=== PATIENT | male | born 1950 | race Caucasian/White ===

== ENCOUNTER 2019-02-20 18:02 | Observation (INO) ==
[2019-02-20 19:30] LABS: Basophils % 0.4 % (0.0-0.8); Eosinophils # 0.2 10*3/uL (0.0-0.87); Eosinophils % 2.7 % (0.00-10.9); Hematocrit 44.5 VOL% (42.0-52.0); Hemoglobin 14.2 GM/DL (14.0-18.0); Immature Granulocytes % 0.1 %; Immature Granulocytes Absolute 0.01 #; Lymphocytes # 1.2 10*3/uL (1.4-4.0); Lymphocytes % 17.1 % (21.2-54.2); Mean Corpuscular HGB Conc 31.9 GM/DL (32-36); Mean Corpuscular Volume 86.6 FL (87-102); Mean Platelet Volume 9.4 FL (9.6-12.0); Monocytes % 6.9 % (1.7-12.7); Neutrophils % 72.8 % (38.7-73.9); Platelet Count 188 T/CUMM (130-400); Red Blood Count 5.14 MC/CUMM (3.8-5.5); Red Cell Distribution Width 13.7 % (9.3-17.3)
[2019-02-20 19:56] LABS: Albumin 4.4 G/DL (3.4-5.0); Bilirubin,Total 0.4 MG/DL (0.2-1.0); Calcium 9.1 MG/DL (8.5-10.1); Osmolality,Calculated 283.5 MOS/KG (273-304); Total Protein 7.2 G/DL (6.4-8.3)
[2019-02-20] MEDS ORDERED: ENOXAPARIN 30 MG/0.3 ML SYRINGE SUBCUT STA (20:52)
[2019-02-20] MEDS ORDERED: ASPIRIN 325 MG TABLET PO STA (20:52)
[2019-02-20] MEDS ORDERED: ENOXAPARIN 80 MG/0.8 ML SYRINGE SUBCUT ONE (21:11)
[2019-02-20] MEDS ORDERED: ONDANSETRON 4 MG TABLET PO PRN (22:31)
[2019-02-20] MEDS ORDERED: GLUCAGON 1 MG VIAL IM PRN (22:35)
[2019-02-20] MEDS ORDERED: DEXTROSE 50% 25 GM/50 ML SYRINGE IV PRN (22:35)
[2019-02-21] MEDS ORDERED: INSULIN LISPRO 100 UNIT/ML SUBCUT SCH ×2 (07:30→16:30)
[2019-02-21] MEDS ORDERED: DIAZEPAM 5 MG TABLET PO ONE (07:43)
[2019-02-21] MEDS ORDERED: MAGNESIUM SULF RIDER 2 GM in PREMIX 1 EACH IV PRN (07:43)
[2019-02-21] MEDS ORDERED: diphenhydrAMINE CAP 25 MG CAPSULE PO ONE (07:43)
[2019-02-21] MEDS ORDERED: POTASSIUM CHLORIDE RIDER 10 MEQ in PREMIX 1 EACH IV PRN (07:43)
[2019-02-21] MEDS: SODIUM CHLORIDE 0.9% 1,000 ML IV SCH ×2 (08:32→17:28)
[2019-02-21] MEDS ORDERED: INSULIN GLARGINE 100 UNIT/ML SUBCUT SCH ×2 (09:00→21:00)
[2019-02-21] MEDS: amLODIPine 10 MG TABLET PO SCH (09:04)
[2019-02-21] MEDS: ASPIRIN EC 81 MG TABLET PO SCH (09:04)
[2019-02-21] MEDS: CLOPIDOGREL 75 MG TABLET PO SCH (09:04)
[2019-02-21] MEDS: LOSARTAN/HCTZ 50-12.5 MG TABLET PO SCH (09:04)
[2019-02-21] MEDS: PANTOPRAZOLE 40 MG TABLET PO SCH (09:04)
[2019-02-21] MEDS: METOPROLOL SUCCINATE XL 50 MG TABLET PO SCH (09:04)
[2019-02-21] MEDS: ATORVASTATIN 40 MG TABLET PO SCH (09:05)
[2019-02-21] MEDS ORDERED: HEPARIN/NACL 0.9% 2 UNITS/ML 1,000 ML IV ONE (09:19)
[2019-02-21] MEDS ORDERED: LIDOCAINE 1%/EPI INJ 20 ML VIAL ONE (09:19)
[2019-02-21] MEDS ORDERED: fentaNYL 100 MCG/2 ML VIAL ONE (09:50)
[2019-02-21] MEDS ORDERED: MIDAZOLAM 2 MG/2 ML VIAL ONE ×2 (09:50→10:49)
[2019-02-21] MEDS ORDERED: HEPARIN/NACL 0.9% 2 UNITS/ML 500 ML IV ONE (10:50)
[2019-02-21] MEDS ORDERED: ENOXAPARIN 60 MG/0.6 ML SYRINGE ONE (10:51)
[2019-02-21] MEDS ORDERED: diphenhydrAMINE 50 MG/1 ML VIAL ONE (11:02)
[2019-02-21] MEDS ORDERED: HYDROmorphone 2 MG/1 ML VIAL ONE (11:11)
[2019-02-21] MEDS ORDERED: ceFAZolin 1,000 MG VIAL ONE (11:16)
[2019-02-21] MEDS ORDERED: HYDROmorphone 2 MG/1 ML VIAL IV PRN (12:24)
[2019-02-21] MEDS: DAPAGLIFLOZIN 10 MG PO SCH (16:26)
[2019-02-22] MEDS ORDERED: INSULIN LISPRO 100 UNIT/ML SUBCUT SCH ×2 (07:30→11:30)
[2019-02-22] MEDS: PANTOPRAZOLE 40 MG TABLET PO SCH (08:48)
[2019-02-22] MEDS: ASPIRIN EC 81 MG TABLET PO SCH (08:48)
[2019-02-22] MEDS: amLODIPine 10 MG TABLET PO SCH (08:49)
[2019-02-22] MEDS: ATORVASTATIN 40 MG TABLET PO SCH (08:49)
[2019-02-22] MEDS: METOPROLOL SUCCINATE XL 50 MG TABLET PO SCH (08:49)
[2019-02-22] MEDS: DAPAGLIFLOZIN 10 MG PO SCH (08:49)
[2019-02-22] MEDS: CLOPIDOGREL 75 MG TABLET PO SCH (08:49)
[2019-02-22] MEDS: LOSARTAN/HCTZ 50-12.5 MG TABLET PO SCH (08:49)
[2019-02-22] MEDS ORDERED: ISOSORBIDE MONONITRATE 60 MG TABLET PO SCH (09:00)
[2019-02-22 13:21] VITALS: BP 122/66
== END 2019-02-22 13:51 | disposition home or self-care (01) ==
LOC: N.EDINP 18:02 → N.ED 18:02 → N.TELES 22:36
PROVIDERS: ADMIT Internal Medicine; ATTEND Internal Medicine

== ENCOUNTER 2019-02-28 15:25 | Inpatient (IN) ==
[2019-02-28 16:32] LABS: Basophils % 0.2 % (0.0-0.8); Eosinophils # 0.2 10*3/uL (0.0-0.87); Eosinophils % 3.3 % (0.00-10.9); Hematocrit 41.8 VOL% (42.0-52.0); Hemoglobin 13.2 GM/DL (14.0-18.0); Immature Granulocytes % 0.2 %; Immature Granulocytes Absolute 0.01 #; Lymphocytes # 1.3 10*3/uL (1.4-4.0); Mean Corpuscular HGB Conc 31.6 GM/DL (32-36); Mean Corpuscular Volume 87.3 FL (87-102); Monocytes % 9.1 % (1.7-12.7); Neutrophils % 66.2 % (38.7-73.9); Red Blood Count 4.79 MC/CUMM (3.8-5.5); Red Cell Distribution Width 13.9 % (9.3-17.3); White Blood Count 6.1 T/CUMM (4-12)
[2019-02-28 16:35] LABS: Calcium 8.9 MG/DL (8.5-10.1); Osmolality,Calculated 278.7 MOS/KG (273-304)
[2019-02-28 16:36] LABS: Platelet Count 144 T/CUMM (130-400)
[2019-02-28] MEDS ORDERED: ONDANSETRON 4 MG/2 ML VIAL IV PRN (17:43)
[2019-02-28] MEDS ORDERED: PROMETHAZINE 25 MG/1 ML VIAL IM PRN (17:43)
[2019-02-28] MEDS ORDERED: ACETAMINOPHEN 325 MG TABLET PO PRN (17:43)
[2019-02-28] MEDS ORDERED: traZODone 50 MG TABLET PO PRN (17:43)
[2019-02-28] MEDS ORDERED: MAGNESIUM SULF RIDER 2 GM in PREMIX 1 EACH IV PRN (17:43)
[2019-02-28] MEDS ORDERED: DEXTROSE 50% 25 GM/50 ML VIAL IV PRN (17:43)
[2019-02-28] MEDS ORDERED: POTASSIUM CHLORIDE 20 MEQ TABLET PO PRN (17:43)
[2019-02-28] MEDS ORDERED: ZALEPLON 5 MG CAPSULE PO PRN (17:43)
[2019-02-28] MEDS ORDERED: GLUCAGON 1 MG VIAL IM PRN (17:43)
[2019-02-28 18:07] LABS: Risk Ratio 2.46
[2019-02-28] MEDS ORDERED: NITROGLYCERIN SL 0.4 MG TABLET SL PRN (19:09)
[2019-02-28] MEDS: ENOXAPARIN 100 MG/ML SYRINGE SUBCUT SCH (19:16)
[2019-02-28] MEDS: SODIUM CHLORIDE 0.45% 1,000 ML IV SCH (19:16)
[2019-02-28] MEDS: INSULIN GLARGINE 100 UNIT/ML SUBCUT SCH ×2 (20:22→20:31)
[2019-02-28] MEDS: INSULIN REGULAR 100 UNIT/ML SUBCUT SCH (20:22)
[2019-02-28] MEDS: DOCUSATE SODIUM 100 MG CAPSULE PO SCH (20:25)
[2019-02-28] MEDS ORDERED: ATORVASTATIN 40 MG TABLET PO SCH (21:00)
[2019-02-28] MEDS ORDERED: INSULIN LISPRO 100 UNIT/ML SUBCUT SCH (21:00)
[2019-02-28] MEDS: NITROGLYCERIN SL 0.4 MG TABLET SL SCH ×2 (21:26→21:27)
[2019-03-01 00:41] LABS: Basophils % 0.3 % (0.0-0.8); Eosinophils # 0.2 10*3/uL (0.0-0.87); Eosinophils % 3.6 % (0.00-10.9); Hematocrit 41.5 VOL% (42.0-52.0); Hemoglobin 13.4 GM/DL (14.0-18.0); Immature Granulocytes % 0.3 %; Immature Granulocytes Absolute 0.02 #; Lymphocytes # 1.7 10*3/uL (1.4-4.0); Lymphocytes % 25.9 % (21.2-54.2); Mean Corpuscular HGB Conc 32.3 GM/DL (32-36); Mean Corpuscular Volume 86.1 FL (87-102); Mean Platelet Volume 9.3 FL (9.6-12.0); Monocytes % 8.2 % (1.7-12.7); Neutrophils % 61.7 % (38.7-73.9); Platelet Count 209 T/CUMM (130-400); Red Blood Count 4.82 MC/CUMM (3.8-5.5); Red Cell Distribution Width 13.8 % (9.3-17.3); White Blood Count 6.5 T/CUMM (4-12)
[2019-03-01 00:59] LABS: Alanine Aminotransferase 25 U/L (16-61); Alkaline Phosphatase 76 U/L (45-117); Aspartate Amino Transferase 22 U/L (0-37); Bilirubin,Total < 0.39 MG/DL (0.2-1.0); Blood Urea Nitrogen 20 MG/DL (7-18); Calcium 8.7 MG/DL (8.5-10.1); Glucose 90 MG/DL (74-106); Osmolality,Calculated 277.7 MOS/KG (273-304); Total Protein 6.9 G/DL (6.4-8.3)
[2019-03-01] MEDS: SODIUM CHLORIDE 0.45% 1,000 ML IV SCH (04:35)
[2019-03-01] MEDS: ENOXAPARIN 100 MG/ML SYRINGE SUBCUT SCH (06:06)
[2019-03-01] MEDS ORDERED: INSULIN LISPRO 100 UNIT/ML SUBCUT SCH (08:00)
[2019-03-01] MEDS ORDERED: amLODIPine 10 MG TABLET PO SCH (09:00)
[2019-03-01] MEDS ORDERED: METOPROLOL SUCCINATE XL 50 MG TABLET PO SCH (09:00)
[2019-03-01] MEDS ORDERED: ISOSORBIDE MONONITRATE 60 MG TABLET PO SCH (09:00)
[2019-03-01] MEDS ORDERED: ASPIRIN EC 81 MG TABLET PO SCH (09:00)
[2019-03-01] MEDS ORDERED: CLOPIDOGREL 75 MG TABLET PO SCH (09:00)
[2019-03-01] MEDS ORDERED: NON-FORMULARY MEDICATION (Dapagliflozin [Farxiga] 10 MG) PO SCH (09:00)
[2019-03-01] MEDS ORDERED: LOSARTAN/HCTZ 50-12.5 MG TABLET PO SCH (09:00)
[2019-03-01] MEDS ORDERED: PANTOPRAZOLE 40 MG TABLET PO SCH (09:00)
[2019-03-01] MEDS: DOCUSATE SODIUM 100 MG CAPSULE PO SCH (09:49)
[2019-03-01] MEDS: INSULIN REGULAR 100 UNIT/ML SUBCUT SCH ×2 (11:13→14:30)
[2019-03-01 11:49] VITALS: BP 156/74
[2019-03-01] MEDS ORDERED: RANOLAZINE 500 MG TABLET PO SCH (12:34)
== END 2019-03-01 14:05 | disposition home or self-care (01) | DRG 282 ==
LOC: N.ED 15:25 → SUATTDRO 17:43 → N.EDINP 17:43 → N.TELEN 18:20
PROVIDERS: ADMIT Phlebology; ATTEND Internal Medicine

== ENCOUNTER 2019-05-16 21:57 | Inpatient (IN) ==
[2019-05-16] MEDS ORDERED: ASPIRIN 325 MG TABLET PO STA (22:18)
[2019-05-16] MEDS ORDERED: HEPARIN 5,000 UNIT/1 ML VIAL IV ONE (22:18)
[2019-05-16] MEDS ORDERED: TICAGRELOR 90 MG TABLET PO STA (22:22)
[2019-05-16 22:30] LABS: Basophils % 0.3 % (0.0-0.8); Eosinophils # 0.3 10*3/uL (0.0-0.87); Eosinophils % 3.8 % (0.00-10.9); Hematocrit 43.6 VOL% (42.0-52.0); Hemoglobin 13.7 GM/DL (14.0-18.0); Immature Granulocytes % 0.3 %; Immature Granulocytes Absolute 0.02 #; Lymphocytes # 1.8 10*3/uL (1.4-4.0); Lymphocytes % 25.8 % (21.2-54.2); Mean Corpuscular HGB Conc 31.4 GM/DL (32-36); Mean Corpuscular Volume 85.8 FL (87-102); Mean Platelet Volume 9.8 FL (9.6-12.0); Neutrophils % 59.8 % (38.7-73.9); Platelet Count 219 T/CUMM (130-400); Red Blood Count 5.08 MC/CUMM (3.8-5.5); White Blood Count 6.8 T/CUMM (4-12)
[2019-05-16] MEDS ORDERED: NITROGLYCERIN DRIP 50 MG/250 ML BOTTLE IV SCH (22:30)
[2019-05-16] MEDS ORDERED: LIDOCAINE 1% 20 ML VIAL ONE (22:45)
[2019-05-16] MEDS ORDERED: fentaNYL 100 MCG/2 ML VIAL ONE (22:45)
[2019-05-16] MEDS ORDERED: MIDAZOLAM 2 MG/2 ML VIAL ONE ×2 (22:45→23:25)
[2019-05-16 22:46] LABS: PT Patient Result 10.7 SECS; Partial Thromboplastin Time 26.6 SECS (0-40)
[2019-05-16 22:51] LABS: Alanine Aminotransferase 23 U/L (16-61); Albumin 4.2 G/DL (3.4-5.0); Alkaline Phosphatase 122 U/L (45-117); Aspartate Amino Transferase 22 U/L (0-37); Bilirubin,Total < 0.39 MG/DL (0.2-1.0); Blood Urea Nitrogen 24 MG/DL (7-18); Calcium 9.4 MG/DL (8.5-10.1); Glucose 210 MG/DL (74-106); Osmolality,Calculated 288.4 MOS/KG (273-304); Total Protein 7.7 G/DL (6.4-8.3)
[2019-05-16] MEDS ORDERED: HYDROmorphone 2 MG/1 ML VIAL ONE (23:18)
[2019-05-16] MEDS ORDERED: NITROGLYCERIN DRIP 50 MG/250 ML BOTTLE IV ONE (23:22)
[2019-05-16] MEDS ORDERED: VERAPAMIL 5 MG/2 ML VIAL ONE (23:22)
[2019-05-16] MEDS ORDERED: PROMETHAZINE 25 MG/1 ML VIAL ONE (23:53)
[2019-05-16] MEDS ORDERED: TICAGRELOR 90 MG TABLET ONE (23:56)
[2019-05-17] MEDS ORDERED: ZALEPLON 5 MG CAPSULE PO PRN (00:28)
[2019-05-17] MEDS ORDERED: ONDANSETRON 4 MG/2 ML VIAL IV PRN (00:28)
[2019-05-17] MEDS ORDERED: HYDROmorphone 2 MG/1 ML VIAL IV PRN (00:28)
[2019-05-17] MEDS ORDERED: DEXTROSE 50% 25 GM/50 ML VIAL IV PRN (00:28)
[2019-05-17] MEDS ORDERED: GLUCAGON 1 MG VIAL IM PRN (00:28)
[2019-05-17] MEDS ORDERED: ALUMINUM/MAGNES/SIMETH MAX STR 30 ML UDCUP PO PRN (00:28)
[2019-05-17] MEDS ORDERED: ACETAMINOPHEN 325 MG TABLET PO PRN (00:28)
[2019-05-17] MEDS ORDERED: SODIUM CHLORIDE 0.9% 1,000 ML IV SCH (00:30)
[2019-05-17] MEDS ORDERED: FUROSEMIDE 40 MG/4 ML VIAL IV ONE (01:06)
[2019-05-17] MEDS ORDERED: NITROGLYCERIN SL 0.4 MG TABLET SL PRN (01:15)
[2019-05-17 02:21] LABS: Basophils # 0.1 10*3/uL (0.0-0.2); Basophils % 0.3 % (0.0-0.8); Eosinophils # 0.1 10*3/uL (0.0-0.87); Eosinophils % 0.4 % (0.00-10.9); Hematocrit 45.5 VOL% (42.0-52.0); Hemoglobin 14.7 GM/DL (14.0-18.0); Immature Granulocytes % 0.3 %; Immature Granulocytes Absolute 0.04 #; Lymphocytes # 1.3 10*3/uL (1.4-4.0); Lymphocytes % 8.4 % (21.2-54.2); Mean Corpuscular HGB Conc 32.3 GM/DL (32-36); Mean Corpuscular Volume 86.2 FL (87-102); Mean Platelet Volume 9.8 FL (9.6-12.0); Monocytes % 6.5 % (1.7-12.7); Neutrophils % 84.1 % (38.7-73.9); Platelet Count 256 T/CUMM (130-400); Red Blood Count 5.28 MC/CUMM (3.8-5.5); White Blood Count 15.2 T/CUMM (4-12)
[2019-05-17] MEDS: NITROGLYCERIN SL 0.4 MG TABLET SL SCH ×3 (02:26→02:28)
[2019-05-17 02:48] LABS: CKMB % 2.6 %; Troponin I 0.462 NG/ML (0.00-0.045)
[2019-05-17 02:57] LABS: Calcium 8.5 MG/DL (8.5-10.1); Osmolality,Calculated 282.7 MOS/KG (273-304); Risk Ratio 2.56; VLDL CHOLESTEROL 17.2 MG/DL
[2019-05-17] MEDS: INSULIN REGULAR 100 UNIT/ML SUBCUT SCH ×4 (08:42→21:27)
[2019-05-17] MEDS: INSULIN LISPRO 100 UNIT/ML SUBCUT SCH ×3 (08:42→17:13)
[2019-05-17] MEDS: ISOSORBIDE MONONITRATE 20 MG TABLET PO SCH ×2 (08:43→21:29)
[2019-05-17] MEDS: amLODIPine 10 MG TABLET PO SCH (08:43)
[2019-05-17] MEDS: PANTOPRAZOLE 40 MG TABLET PO SCH (08:43)
[2019-05-17] MEDS: TICAGRELOR 90 MG TABLET PO SCH ×2 (08:43→21:29)
[2019-05-17] MEDS: ASPIRIN EC 81 MG TABLET PO SCH (08:43)
[2019-05-17] MEDS: METOPROLOL SUCCINATE XL 50 MG TABLET PO SCH (08:43)
[2019-05-17] MEDS: LOSARTAN/HCTZ 50-12.5 MG TABLET PO SCH (08:45)
[2019-05-17] MEDS ORDERED: ENOXAPARIN 40 MG/0.4 ML SYRINGE SUBCUT SCH (09:00)
[2019-05-17] MEDS ORDERED: NON-FORMULARY MEDICATION (Omeprazole 20 MG) PO SCH (09:00)
[2019-05-17 09:34] LABS: CKMB % 8.1 %
[2019-05-17 09:37] LABS: Troponin I 5.66 NG/ML (0.00-0.045)
[2019-05-17 17:12] LABS: CKMB % 6.6 %
[2019-05-17 17:14] LABS: Troponin I 11.2 NG/ML (0.00-0.045)
[2019-05-17] MEDS: ATORVASTATIN 40 MG TABLET PO SCH (21:29)
[2019-05-17] MEDS: INSULIN GLARGINE 100 UNIT/ML SUBCUT SCH ×2 (21:30→21:34)
[2019-05-17] MEDS: prednisoLONE ACETATE 1% OPH SUSP 5 ML BOTTLE BOTH EYES SCH (21:33)
[2019-05-18 00:53] LABS: CKMB % 4.5 %
[2019-05-18 01:01] LABS: Troponin I 10.1 NG/ML (0.00-0.045)
[2019-05-18 06:24] LABS: CKMB % 3.5 %
[2019-05-18 06:25] LABS: Troponin I 7.18 NG/ML (0.00-0.045)
[2019-05-18] MEDS: INSULIN REGULAR 100 UNIT/ML SUBCUT SCH ×4 (08:14→20:18)
[2019-05-18] MEDS: INSULIN LISPRO 100 UNIT/ML SUBCUT SCH ×3 (09:23→17:02)
[2019-05-18] MEDS: ASPIRIN EC 81 MG TABLET PO SCH (09:24)
[2019-05-18] MEDS: PANTOPRAZOLE 40 MG TABLET PO SCH (09:24)
[2019-05-18] MEDS: amLODIPine 10 MG TABLET PO SCH (09:25)
[2019-05-18] MEDS: LOSARTAN/HCTZ 50-12.5 MG TABLET PO SCH (09:25)
[2019-05-18] MEDS: TICAGRELOR 90 MG TABLET PO SCH ×2 (09:25→21:13)
[2019-05-18] MEDS: ISOSORBIDE MONONITRATE 20 MG TABLET PO SCH ×2 (09:26→21:13)
[2019-05-18] MEDS: METOPROLOL SUCCINATE XL 50 MG TABLET PO SCH (09:26)
[2019-05-18] MEDS: Dapagliflozin [Farxiga] 10 MG PO SCH (15:41)
[2019-05-18] MEDS: prednisoLONE ACETATE 1% OPH SUSP 5 ML BOTTLE BOTH EYES SCH (21:12)
[2019-05-18] MEDS: INSULIN GLARGINE 100 UNIT/ML SUBCUT SCH (21:13)
[2019-05-18] MEDS: ATORVASTATIN 40 MG TABLET PO SCH (21:13)
[2019-05-19 06:57] LABS: Calcium 8.7 MG/DL (8.5-10.1); Osmolality,Calculated 279.7 MOS/KG (273-304)
[2019-05-19] MEDS: ASPIRIN EC 81 MG TABLET PO SCH (07:59)
[2019-05-19] MEDS: PANTOPRAZOLE 40 MG TABLET PO SCH (07:59)
[2019-05-19] MEDS: ISOSORBIDE MONONITRATE 20 MG TABLET PO SCH (07:59)
[2019-05-19] MEDS: LOSARTAN/HCTZ 50-12.5 MG TABLET PO SCH (07:59)
[2019-05-19] MEDS: TICAGRELOR 90 MG TABLET PO SCH (08:00)
[2019-05-19] MEDS: METOPROLOL SUCCINATE XL 50 MG TABLET PO SCH (08:00)
[2019-05-19] MEDS: amLODIPine 10 MG TABLET PO SCH (08:00)
[2019-05-19] MEDS: INSULIN LISPRO 100 UNIT/ML SUBCUT SCH (08:00)
[2019-05-19] MEDS: INSULIN REGULAR 100 UNIT/ML SUBCUT SCH (08:01)
[2019-05-19] MEDS: Dapagliflozin [Farxiga] 10 MG PO SCH (08:01)
[2019-05-19 08:10] VITALS: BP 136/68
== END 2019-05-19 08:40 | disposition home or self-care (01) | DRG 247 ==
LOC: N.ED 21:57 → N.EDINP 22:46 → N.ICU 05-17 01:20 → N.TELEN 05-17 17:37
PROVIDERS: ADMIT Internal Medicine Cardiovascular Disease; ATTEND Internal Medicine Cardiovascular Disease

== ENCOUNTER 2019-08-25 20:37 | Inpatient (IN) ==
[2019-08-25] MEDS ORDERED: NITROGLYCERIN 2% OINT 1 INCH/GM PACK TOP STA (22:40)
[2019-08-25] MEDS ORDERED: ONDANSETRON 4 MG/2 ML VIAL IV STA (22:40)
[2019-08-25] MEDS ORDERED: PANTOPRAZOLE 40 MG VIAL IV STA (22:40)
[2019-08-25] MEDS ORDERED: ASPIRIN 325 MG TABLET PO STA (22:40)
[2019-08-25] MEDS ORDERED: MORPHINE 4 MG/1 ML VIAL IV STA (22:40)
[2019-08-25] MEDS ORDERED: ALUM/MAG/SIMETH/LIDO VISC 1:1 30 ML BOTTLE PO STA (22:40)
[2019-08-25 23:05] LABS: Basophils % 0.5 % (0.0-0.8); Eosinophils # 0.3 10*3/uL (0.0-0.87); Eosinophils % 3.9 % (0.00-10.9); Hematocrit 39.9 VOL% (42.0-52.0); Hemoglobin 12.7 GM/DL (14.0-18.0); Immature Granulocytes % 0.3 %; Immature Granulocytes Absolute 0.02 #; Lymphocytes # 1.2 10*3/uL (1.4-4.0); Lymphocytes % 18.1 % (21.2-54.2); Mean Corpuscular HGB Conc 31.8 GM/DL (32-36); Mean Platelet Volume 10.4 FL (9.6-12.0); Monocytes % 7.3 % (1.7-12.7); Neutrophils % 69.9 % (38.7-73.9); Platelet Count 214 T/CUMM (130-400); Red Blood Count 4.75 MC/CUMM (3.8-5.5); Red Cell Distribution Width 14.9 % (9.3-17.3); White Blood Count 6.5 T/CUMM (4-12)
[2019-08-25 23:17] LABS: Alanine Aminotransferase 25 U/L (16-61); Albumin 3.9 G/DL (3.4-5.0); Alkaline Phosphatase 106 U/L (45-117); Aspartate Amino Transferase 22 U/L (0-37); Bilirubin,Total < 0.39 MG/DL (0.2-1.0); Blood Urea Nitrogen 23 MG/DL (7-18); Calcium 8.3 MG/DL (8.5-10.1); Estimated Glom Filtration Rate 81 ML/MIN; Glucose 278 MG/DL (74-106); Osmolality,Calculated 286.8 MOS/KG (273-304); Total Protein 6.7 G/DL (6.4-8.3)
[2019-08-25] MEDS ORDERED: FUROSEMIDE 40 MG/4 ML VIAL IV STA (23:29)
[2019-08-26] MEDS ORDERED: GLUCAGON 1 MG VIAL IM PRN (00:49)
[2019-08-26] MEDS ORDERED: ONDANSETRON 4 MG/2 ML VIAL IV PRN (00:49)
[2019-08-26] MEDS ORDERED: POTASSIUM CHLORIDE 20 MEQ TABLET PO PRN (00:49)
[2019-08-26] MEDS ORDERED: MAGNESIUM SULF RIDER 4 GM in PREMIX 1 EACH IV PRN (00:49)
[2019-08-26] MEDS ORDERED: INSULIN REGULAR 100 UNIT/ML SUBCUT SCH (00:49)
[2019-08-26] MEDS ORDERED: DEXTROSE 50% 25 GM/50 ML VIAL IV PRN (00:49)
[2019-08-26] MEDS ORDERED: MAGNESIUM SULF RIDER 2 GM in PREMIX 1 EACH IV PRN (00:49)
[2019-08-26] MEDS: NITROGLYCERIN 2% OINT 1 INCH/GM PACK TOP SCH ×4 (02:43→18:32)
[2019-08-26] MEDS: SODIUM CHLORIDE 0.9% 1,000 ML IV SCH (02:43)
[2019-08-26 02:44] LABS: Basophils % 0.2 % (0.0-0.8); Eosinophils # 0.1 10*3/uL (0.0-0.87); Eosinophils % 0.9 % (0.00-10.9); Hematocrit 38.4 VOL% (42.0-52.0); Hemoglobin 12.5 GM/DL (14.0-18.0); Immature Granulocytes % 1.2 %; Lymphocytes # 0.9 10*3/uL (1.4-4.0); Lymphocytes % 11.1 % (21.2-54.2); Mean Corpuscular HGB Conc 32.6 GM/DL (32-36); Mean Corpuscular Volume 83.8 FL (87-102); Mean Platelet Volume 9.9 FL (9.6-12.0); Monocytes % 7.8 % (1.7-12.7); Neutrophils % 78.8 % (38.7-73.9); Platelet Count 201 T/CUMM (130-400); Red Blood Count 4.58 MC/CUMM (3.8-5.5); Red Cell Distribution Width 14.9 % (9.3-17.3); White Blood Count 8.1 T/CUMM (4-12)
[2019-08-26 03:00] LABS: Alanine Aminotransferase 22 U/L (16-61); Albumin 3.8 G/DL (3.4-5.0); Alkaline Phosphatase 88 U/L (45-117); Aspartate Amino Transferase 25 U/L (0-37); Bilirubin,Total < 0.39 MG/DL (0.2-1.0); Blood Urea Nitrogen 22 MG/DL (7-18); Calcium 8.3 MG/DL (8.5-10.1); Estimated Glom Filtration Rate 82 ML/MIN; Glucose 197 MG/DL (74-106); HDL Cholesterol 42 MG/DL (40-60); Osmolality,Calculated 284.5 MOS/KG (273-304); Risk Ratio 2.17; Total Protein 6.7 G/DL (6.4-8.3); Triglycerides 79 MG/DL (2-150); VLDL CHOLESTEROL 15.8 MG/DL
[2019-08-26] MEDS ORDERED: ENOXAPARIN 100 MG/ML SYRINGE SUBCUT ONE ×2 (04:04→16:00)
[2019-08-26] MEDS: INSULIN REGULAR 100 UNIT/ML SUBCUT SCH ×4 (05:21→23:00)
[2019-08-26] MEDS: INSULIN LISPRO 100 UNIT/ML SUBCUT SCH ×3 (07:49→18:31)
[2019-08-26] MEDS ORDERED: PANTOPRAZOLE 40 MG TABLET PO SCH (09:00)
[2019-08-26] MEDS ORDERED: Dapagliflozin [Farxiga] 10 MG PO SCH (09:00)
[2019-08-26] MEDS ORDERED: POTASSIUM CHLORIDE RIDER 10 MEQ in PREMIX 1 EACH IV PRN (09:06)
[2019-08-26] MEDS: TICAGRELOR 90 MG TABLET PO SCH ×2 (09:11→20:58)
[2019-08-26] MEDS: amLODIPine 10 MG TABLET PO SCH (09:11)
[2019-08-26] MEDS: METOPROLOL SUCCINATE XL 50 MG TABLET PO SCH (09:12)
[2019-08-26] MEDS: ASPIRIN EC 81 MG TABLET PO SCH (09:12)
[2019-08-26] MEDS: ISOSORBIDE MONONITRATE 20 MG TABLET PO SCH ×2 (09:12→20:58)
[2019-08-26] MEDS: PANTOPRAZOLE 40 MG TABLET PO SCH (09:12)
[2019-08-26 15:41] LABS: CKMB % 5.7 %
[2019-08-26 15:44] LABS: Troponin I 4.31 NG/ML (0.00-0.045)
[2019-08-26] MEDS: ATORVASTATIN 40 MG TABLET PO SCH (20:58)
[2019-08-26] MEDS: INSULIN GLARGINE 100 UNIT/ML SUBCUT SCH (20:59)
[2019-08-27] MEDS: NITROGLYCERIN 2% OINT 1 INCH/GM PACK TOP SCH ×4 (00:21→18:22)
[2019-08-27] MEDS: SODIUM CHLORIDE 0.9% 1,000 ML IV SCH ×2 (02:52→14:51)
[2019-08-27] MEDS: INSULIN REGULAR 100 UNIT/ML SUBCUT SCH ×3 (05:23→17:22)
[2019-08-27 05:43] LABS: Basophils % 0.6 % (0.0-0.8); Eosinophils # 0.3 10*3/uL (0.0-0.87); Eosinophils % 4.2 % (0.00-10.9); Hematocrit 39.3 VOL% (42.0-52.0); Hemoglobin 12.3 GM/DL (14.0-18.0); Immature Granulocytes % 0.1 %; Immature Granulocytes Absolute 0.01 #; Lymphocytes # 1.8 10*3/uL (1.4-4.0); Lymphocytes % 26.7 % (21.2-54.2); Mean Corpuscular HGB Conc 31.3 GM/DL (32-36); Mean Corpuscular Volume 85.4 FL (87-102); Mean Platelet Volume 10.3 FL (9.6-12.0); Monocytes % 10.4 % (1.7-12.7); Platelet Count 196 T/CUMM (130-400); White Blood Count 6.9 T/CUMM (4-12)
[2019-08-27 06:23] LABS: Calcium 8.3 MG/DL (8.5-10.1); Osmolality,Calculated 286.1 MOS/KG (273-304)
[2019-08-27 06:34] LABS: Troponin I 2.34 NG/ML (0.00-0.045)
[2019-08-27] MEDS ORDERED: HEPARIN/NACL 0.9% 2 UNITS/ML 1,000 ML IV ONE (06:44)
[2019-08-27] MEDS ORDERED: LIDOCAINE 1% 20 ML VIAL ONE (06:44)
[2019-08-27] MEDS ORDERED: diphenhydrAMINE CAP 25 MG CAPSULE PO ONE (07:00)
[2019-08-27] MEDS ORDERED: DIAZEPAM 5 MG TABLET PO ONE (07:00)
[2019-08-27] MEDS ORDERED: MIDAZOLAM 2 MG/2 ML VIAL ONE (07:14)
[2019-08-27] MEDS ORDERED: HYDROmorphone 2 MG/1 ML VIAL ONE (07:14)
[2019-08-27] MEDS: INSULIN LISPRO 100 UNIT/ML SUBCUT SCH ×3 (07:59→17:43)
[2019-08-27] MEDS ORDERED: BIVALIRUDIN 250 MG VIAL IV ONE (08:14)
[2019-08-27] MEDS ORDERED: diphenhydrAMINE 50 MG/1 ML VIAL ONE (08:19)
[2019-08-27] MEDS ORDERED: NITROGLYCERIN DRIP 50 MG/250 ML BOTTLE IV ONE (08:27)
[2019-08-27] MEDS ORDERED: TICAGRELOR 90 MG TABLET ONE (08:42)
[2019-08-27] MEDS ORDERED: FUROSEMIDE 40 MG/4 ML VIAL ONE (09:03)
[2019-08-27] MEDS ORDERED: DEXTROSE 50% 25 GM/50 ML VIAL IV PRN (09:06)
[2019-08-27] MEDS ORDERED: GLUCAGON 1 MG VIAL IM PRN (09:06)
[2019-08-27] MEDS ORDERED: ZALEPLON 5 MG CAPSULE PO PRN (09:06)
[2019-08-27] MEDS ORDERED: ONDANSETRON 4 MG/2 ML VIAL ONE (09:25)
[2019-08-27] MEDS: TICAGRELOR 90 MG TABLET PO SCH ×2 (09:54→22:06)
[2019-08-27] MEDS: ISOSORBIDE MONONITRATE 20 MG TABLET PO SCH ×2 (09:54→22:06)
[2019-08-27 10:23] LABS: Apearance,Urine CLEAR (Clear); Bacteria,Urine Occasional /HPF (Few); Bilirubin,Urine Negative (Negative); Blood, Urine Small mg/dL (Negative); Glucose,Urine (UA) >=500 mg/dL (Negative); Ketones,Urine Negative (Negative); Nitrite,Urine Negative (Negative); Protein,Urine Negative; RBC,Urine 7 /HPF (0-4); Renal Epithelial Cells,Urine Few /HPF (<1); Squamous Epithelial Cell,Urine Occasional /HPF (0-10); Urine Color Yellow (Yellow); Urine Urobilinogen < 2.0 EU/DL (0.2-1.0); WBC,Urine 1 /HPF (0-6)
[2019-08-27] MEDS: METOPROLOL SUCCINATE XL 50 MG TABLET PO SCH (13:04)
[2019-08-27] MEDS: amLODIPine 10 MG TABLET PO SCH (13:04)
[2019-08-27] MEDS: ASPIRIN EC 81 MG TABLET PO SCH (13:04)
[2019-08-27] MEDS: PANTOPRAZOLE 40 MG TABLET PO SCH (13:04)
[2019-08-27] MEDS: CILOSTAZOL 50 MG TABLET PO SCH (22:06)
[2019-08-27] MEDS: INSULIN GLARGINE 100 UNIT/ML SUBCUT SCH (22:06)
[2019-08-27] MEDS: ATORVASTATIN 40 MG TABLET PO SCH (22:06)
[2019-08-28] MEDS: INSULIN REGULAR 100 UNIT/ML SUBCUT SCH ×4 (00:51→17:21)
[2019-08-28] MEDS: NITROGLYCERIN 2% OINT 1 INCH/GM PACK TOP SCH ×4 (01:34→21:54)
[2019-08-28] MEDS: SODIUM CHLORIDE 0.9% 1,000 ML IV SCH ×2 (03:38→17:22)
[2019-08-28 05:42] LABS: Basophils % 0.2 % (0.0-0.8); Eosinophils # 0.1 10*3/uL (0.0-0.87); Eosinophils % 0.5 % (0.00-10.9); Hematocrit 36.9 VOL% (42.0-52.0); Immature Granulocytes % 0.4 %; Immature Granulocytes Absolute 0.05 #; Lymphocytes # 1.1 10*3/uL (1.4-4.0); Lymphocytes % 9.7 % (21.2-54.2); Mean Corpuscular HGB Conc 32.5 GM/DL (32-36); Mean Corpuscular Volume 82.4 FL (87-102); Mean Platelet Volume 10.4 FL (9.6-12.0); Monocytes % 10.4 % (1.7-12.7); Neutrophils % 78.8 % (38.7-73.9); Platelet Count 192 T/CUMM (130-400); Red Blood Count 4.48 MC/CUMM (3.8-5.5); Red Cell Distribution Width 15.2 % (9.3-17.3); White Blood Count 11.4 T/CUMM (4-12)
[2019-08-28 06:21] LABS: CKMB % 7.3 %; Calcium 8.1 MG/DL (8.5-10.1); Osmolality,Calculated 283.3 MOS/KG (273-304)
[2019-08-28 06:27] LABS: Troponin I 13.3 NG/ML (0.00-0.045)
[2019-08-28] MEDS: INSULIN LISPRO 100 UNIT/ML SUBCUT SCH ×3 (09:06→17:22)
[2019-08-28] MEDS: METOPROLOL SUCCINATE XL 50 MG TABLET PO SCH (09:07)
[2019-08-28] MEDS: ISOSORBIDE MONONITRATE 20 MG TABLET PO SCH ×2 (09:07→21:27)
[2019-08-28] MEDS: amLODIPine 10 MG TABLET PO SCH (09:07)
[2019-08-28] MEDS: CILOSTAZOL 50 MG TABLET PO SCH ×2 (09:07→21:27)
[2019-08-28] MEDS: PANTOPRAZOLE 40 MG TABLET PO SCH (09:07)
[2019-08-28] MEDS: ASPIRIN EC 81 MG TABLET PO SCH (09:07)
[2019-08-28] MEDS: TICAGRELOR 90 MG TABLET PO SCH ×2 (09:07→21:27)
[2019-08-28] MEDS: ATORVASTATIN 40 MG TABLET PO SCH (21:27)
[2019-08-28] MEDS: INSULIN GLARGINE 100 UNIT/ML SUBCUT SCH (21:28)
[2019-08-29] MEDS: INSULIN REGULAR 100 UNIT/ML SUBCUT SCH ×3 (00:02→12:42)
[2019-08-29] MEDS: NITROGLYCERIN 2% OINT 1 INCH/GM PACK TOP SCH ×2 (01:45→06:18)
[2019-08-29 06:32] LABS: Basophils % 0.1 % (0.0-0.8); Eosinophils # 0.3 10*3/uL (0.0-0.87); Eosinophils % 2.9 % (0.00-10.9); Hemoglobin 11.8 GM/DL (14.0-18.0); Immature Granulocytes % 0.2 %; Immature Granulocytes Absolute 0.02 #; Lymphocytes % 10.6 % (21.2-54.2); Mean Corpuscular HGB Conc 31.9 GM/DL (32-36); Mean Corpuscular Volume 83.7 FL (87-102); Mean Platelet Volume 9.8 FL (9.6-12.0); Monocytes % 8.7 % (1.7-12.7); Neutrophils % 77.5 % (38.7-73.9); Platelet Count 177 T/CUMM (130-400); Red Blood Count 4.42 MC/CUMM (3.8-5.5); Red Cell Distribution Width 15.2 % (9.3-17.3)
[2019-08-29 06:55] LABS: Calcium 8.1 MG/DL (8.5-10.1); Osmolality,Calculated 273.1 MOS/KG (273-304)
[2019-08-29] MEDS: INSULIN LISPRO 100 UNIT/ML SUBCUT SCH ×2 (08:25→12:41)
[2019-08-29] MEDS: ASPIRIN EC 81 MG TABLET PO SCH (08:44)
[2019-08-29] MEDS: TICAGRELOR 90 MG TABLET PO SCH (08:44)
[2019-08-29] MEDS: ISOSORBIDE MONONITRATE 20 MG TABLET PO SCH (08:44)
[2019-08-29] MEDS: amLODIPine 10 MG TABLET PO SCH (08:44)
[2019-08-29] MEDS: CILOSTAZOL 50 MG TABLET PO SCH (08:44)
[2019-08-29] MEDS: METOPROLOL SUCCINATE XL 50 MG TABLET PO SCH (08:45)
[2019-08-29] MEDS: PANTOPRAZOLE 40 MG TABLET PO SCH (08:45)
[2019-08-29 13:53] VITALS: BP 136/77
== END 2019-08-29 14:00 | disposition home or self-care (01) | DRG 247 ==
LOC: N.ED 20:37 → N.EDINP 23:50 → N.TELEN 08-26 00:06
PROVIDERS: ADMIT Internal Medicine Cardiovascular Disease; ATTEND Internal Medicine Cardiovascular Disease
PROC: CLDESPG (ICD-10-PCS; 2019-08-27 07:45)

== ENCOUNTER 2019-10-04 20:51 | Observation (INO) ==
[2019-10-04] MEDS ORDERED: ASPIRIN 325 MG TABLET PO STA (21:15)
[2019-10-04 21:30] LABS: Basophils % 0.3 % (0.0-0.8); Eosinophils # 0.3 10*3/uL (0.0-0.87); Eosinophils % 4.2 % (0.00-10.9); Hematocrit 41.1 VOL% (42.0-52.0); Hemoglobin 13.2 GM/DL (14.0-18.0); Immature Granulocytes % 0.3 %; Immature Granulocytes Absolute 0.02 #; Lymphocytes % 28.2 % (21.2-54.2); Mean Corpuscular HGB Conc 32.1 GM/DL (32-36); Mean Corpuscular Volume 83.7 FL (87-102); Mean Platelet Volume 9.4 FL (9.6-12.0); Monocytes % 9.9 % (1.7-12.7); Neutrophils % 57.1 % (38.7-73.9); PT Patient Result 11.2 SECS (9.6-12.2); Partial Thromboplastin Time 27.5 SECS (20.8-36.0); Platelet Count 247 T/CUMM (130-400); Red Blood Count 4.91 MC/CUMM (3.8-5.5); Red Cell Distribution Width 15.1 % (9.3-17.3); White Blood Count 7.2 T/CUMM (4-12)
[2019-10-04 21:42] LABS: Alanine Aminotransferase 26 U/L (16-61); Albumin 4.1 G/DL (3.4-5.0); Alkaline Phosphatase 106 U/L (45-117); Aspartate Amino Transferase 23 U/L (0-37); Bilirubin,Total < 0.39 MG/DL (0.2-1.0); Blood Urea Nitrogen 23 MG/DL (7-18); Calcium 8.8 MG/DL (8.5-10.1); Estimated Glom Filtration Rate 65 ML/MIN; Glucose 198 MG/DL (74-106); Total Protein 7.3 G/DL (6.4-8.3)
[2019-10-04 21:52] LABS: Apearance,Urine CLEAR (Clear); Bilirubin,Urine Negative (Negative); Blood, Urine Small mg/dL (Negative); Glucose,Urine (UA) >=500 mg/dL (Negative); Ketones,Urine Negative (Negative); Nitrite,Urine Negative (Negative); Protein,Urine Negative; RBC,Urine 1 /HPF (0-4); Urine Color Colorless (Yellow); Urine Specific Gravity 1.011 (1.001-1.035); Urine Urobilinogen < 2.0 EU/DL (0.2-1.0); WBC,Urine <1 /HPF (0-6)
[2019-10-04] MEDS ORDERED: TICAGRELOR 90 MG TABLET PO STA (22:25)
[2019-10-04] MEDS ORDERED: DEXTROSE 50% 25 GM/50 ML SYRINGE IV PRN (23:52)
[2019-10-04] MEDS ORDERED: ONDANSETRON 4 MG/2 ML VIAL IV PRN (23:52)
[2019-10-04] MEDS ORDERED: ALUM/MAG/SIMETH/LIDO VISC 1:1 30 ML BOTTLE PO PRN (23:52)
[2019-10-04] MEDS ORDERED: GLUCAGON 1 MG VIAL IM PRN (23:52)
[2019-10-04] MEDS ORDERED: NITROGLYCERIN SL 0.4 MG TABLET SL PRN (23:52)
[2019-10-05] MEDS: ENOXAPARIN 80 MG/0.8 ML SYRINGE SUBCUT SCH ×2 (03:40→10:41)
[2019-10-05 08:03] VITALS: BP 128/60
[2019-10-05] MEDS ORDERED: PANTOPRAZOLE 40 MG TABLET PO SCH (09:00)
== END 2019-10-05 11:25 | disposition home or self-care (01) ==
LOC: N.EDINP 20:51 → N.ED 20:51 → N.2W 23:16
PROVIDERS: ADMIT Internal Medicine Cardiovascular Disease; ATTEND Emergency Medicine

== ENCOUNTER 2020-06-23 03:41 | Inpatient (IN) ==
[2020-06-23] MEDS ORDERED: ASPIRIN 325 MG TABLET PO STA (04:06)
[2020-06-23] MEDS ORDERED: ONDANSETRON 4 MG/2 ML VIAL IV STA (04:06)
[2020-06-23] MEDS ORDERED: HEPARIN 5,000 UNIT/1 ML VIAL IV ONE (04:06)
[2020-06-23] MEDS ORDERED: MORPHINE 4 MG/1 ML VIAL IV STA (04:06)
[2020-06-23] MEDS ORDERED: NITROGLYCERIN 2% OINT 1 INCH/GM PACK TOP STA (04:06)
[2020-06-23] MEDS ORDERED: PANTOPRAZOLE 40 MG VIAL IV STA (04:06)
[2020-06-23] MEDS ORDERED: fentaNYL 100 MCG/2 ML VIAL ONE ×2 (04:29→05:05)
[2020-06-23] MEDS ORDERED: MIDAZOLAM 2 MG/2 ML VIAL ONE ×3 (04:29→05:05)
[2020-06-23 04:40] LABS: Basophils % 0.2 % (0.0-0.8); Eosinophils # 0.1 10*3/uL (0.0-0.87); Eosinophils % 1.2 % (0.00-10.9); Hematocrit 39.7 VOL% (42.0-52.0); Hemoglobin 13.1 GM/DL (14.0-18.0); Immature Granulocytes % 0.3 %; Immature Granulocytes Absolute 0.04 #; Lymphocytes # 1.7 10*3/uL (1.4-4.0); Lymphocytes % 13.8 % (21.2-54.2); Mean Corpuscular Volume 80.9 FL (87-102); Mean Platelet Volume 9.5 FL (9.6-12.0); Monocytes % 7.5 % (1.7-12.7); Platelet Count 282 T/CUMM (130-400); Red Blood Count 4.91 MC/CUMM (3.8-5.5); Red Cell Distribution Width 15.1 % (9.3-17.3); White Blood Count 12.1 T/CUMM (4-12)
[2020-06-23 04:47] LABS: Albumin 3.9 G/DL (3.4-5.0); Bilirubin,Total 0.4 MG/DL (0.2-1.0); Osmolality,Calculated 287.7 MOS/KG (273-304)
[2020-06-23 04:49] LABS: INR 1.1; PT Patient Result 11.5 SECS (9.8-11.9)
[2020-06-23] MEDS ORDERED: NITROGLYCERIN DRIP 50 MG/250 ML BOTTLE IV ONE (04:57)
[2020-06-23] MEDS ORDERED: VERAPAMIL 5 MG/2 ML VIAL ONE (04:57)
[2020-06-23] MEDS ORDERED: HEPARIN 5,000 UNIT/1 ML VIAL ONE (05:03)
[2020-06-23] MEDS ORDERED: LIDOCAINE 1% 20 ML VIAL ONE (05:22)
[2020-06-23] MEDS ORDERED: HEPARIN/NACL 0.9% 2 UNITS/ML 1,000 ML IV ONE (05:22)
[2020-06-23] MEDS ORDERED: diphenhydrAMINE 50 MG/1 ML VIAL IV ONE (06:30)
[2020-06-23] MEDS ORDERED: HEPARIN/NACL 0.9% 2 UNITS/ML 500 ML IV ONE (06:30)
[2020-06-23] MEDS ORDERED: TICAGRELOR 90 MG TABLET PO ONE (06:30)
[2020-06-23] MEDS ORDERED: FUROSEMIDE 40 MG/4 ML VIAL IV ONE (06:30)
[2020-06-23] MEDS ORDERED: MIDAZOLAM 10 MG/2 ML VIAL IV ONE (06:30)
[2020-06-23] MEDS ORDERED: ACETAMINOPHEN 325 MG TABLET PO PRN (06:48)
[2020-06-23] MEDS ORDERED: GLUCAGON 1 MG VIAL IM PRN (06:48)
[2020-06-23] MEDS ORDERED: DEXTROSE 50% 25 GM/50 ML VIAL IV PRN (06:48)
[2020-06-23] MEDS ORDERED: SODIUM CHLORIDE 0.9% 1,000 ML IV SCH (07:00)
[2020-06-23 07:47] LABS: Apearance,Urine CLEAR (Clear); Bilirubin,Urine Negative (Negative); Blood, Urine Negative (Negative); Glucose,Urine (UA) >=500 mg/dL (Negative); Ketones,Urine Negative (Negative); Nitrite,Urine Negative (Negative); Protein,Urine Negative; RBC,Urine 2 /HPF (0-4); Urine Color Colorless (Yellow); Urine Specific Gravity 1.051 (1.001-1.035); Urine Urobilinogen < 2.0 EU/DL (0.2-1.0)
[2020-06-23 08:06] LABS: Basophils % 0.2 % (0.0-0.8); Eosinophils % 0.1 % (0.00-10.9); Hematocrit 40.7 VOL% (42.0-52.0); Hemoglobin 13.5 GM/DL (14.0-18.0); Immature Granulocytes % 0.4 %; Immature Granulocytes Absolute 0.05 #; Lymphocytes # 0.6 10*3/uL (1.4-4.0); Lymphocytes % 4.8 % (21.2-54.2); Mean Corpuscular HGB Conc 33.2 GM/DL (32-36); Mean Corpuscular Volume 81.1 FL (87-102); Mean Platelet Volume 9.8 FL (9.6-12.0); Neutrophils % 91.5 % (38.7-73.9); Platelet Count 290 T/CUMM (130-400); Red Blood Count 5.02 MC/CUMM (3.8-5.5); Red Cell Distribution Width 15.1 % (9.3-17.3); White Blood Count 13.3 T/CUMM (4-12)
[2020-06-23 08:24] LABS: Calcium 8.4 MG/DL (8.5-10.1); Osmolality,Calculated 289.7 MOS/KG (273-304)
[2020-06-23 08:34] LABS: Anisocytosis 1+; Band Neutrophils 7 % (0-10); Lymphocytes 6 % (20-55); Platelet Estimate Normal; Segmented Neutrophils 83 % (50-85); Total Cells Counted 100
[2020-06-23] MEDS: ISOSORBIDE MONONITRATE 20 MG TABLET PO SCH ×2 (08:42→21:08)
[2020-06-23] MEDS: cilostazoL 50 MG TABLET PO SCH ×2 (08:42→21:08)
[2020-06-23] MEDS: amLODIPine 10 MG TABLET PO SCH (08:42)
[2020-06-23] MEDS: METOPROLOL SUCCINATE XL 50 MG TABLET PO SCH (08:42)
[2020-06-23] MEDS: ATORVASTATIN 40 MG TABLET PO SCH (08:43)
[2020-06-23] MEDS: INSULIN LISPRO 100 UNIT/ML SUBCUT SCH ×3 (08:44→16:55)
[2020-06-23] MEDS: INSULIN REGULAR 100 UNIT/ML SUBCUT SCH ×4 (08:48→21:10)
[2020-06-23] MEDS: TICAGRELOR 90 MG TABLET PO SCH ×2 (08:49→21:13)
[2020-06-23] MEDS: ASPIRIN EC 81 MG TABLET PO SCH (08:49)
[2020-06-23] MEDS ORDERED: NON-FORMULARY MEDICATION (Omeprazole 20 MG capsule,delayed release(DR/EC)) PO SCH (09:00)
[2020-06-23] MEDS: DAPAGLIFLOZIN 10 MG PO SCH (09:40)
[2020-06-23] MEDS: PANTOPRAZOLE 40 MG TABLET PO SCH (09:41)
[2020-06-23] MEDS: OLMESARTAN 20 MG TABLET PO SCH (11:00)
[2020-06-23] MEDS: hydroCHLOROthiazide 12.5 MG CAPSULE PO SCH (11:00)
[2020-06-23] MEDS ORDERED: ALUMINUM/MAGNES/SIMETH MAX STR 30 ML UDCUP PO PRN (19:41)
[2020-06-23] MEDS ORDERED: PREDNISOLONE ACETATE 1% RIGHT EYE SCH (21:00)
[2020-06-23] MEDS ORDERED: INSULIN GLARGINE 100 UNIT/ML SUBCUT SCH (21:00)
[2020-06-23] MEDS ORDERED: [UNRECOGNIZED DRUG - OTHER] RIGHT EYE SCH (21:00)
[2020-06-23] MEDS: ONDANSETRON 4 MG/2 ML VIAL IV PRN (23:55)
[2020-06-24] MEDS ORDERED: ALUM/MAG/SIMETH/LIDO VISC 1:1 30 ML BOTTLE PO ONE ×2 (00:49→00:59)
[2020-06-24 04:38] LABS: Basophils % 0.2 % (0.0-0.8); Eosinophils % 0.1 % (0.00-10.9); Hematocrit 35.4 VOL% (42.0-52.0); Hemoglobin 11.3 GM/DL (14.0-18.0); Immature Granulocytes % 0.5 %; Immature Granulocytes Absolute 0.09 #; Lymphocytes # 0.9 10*3/uL (1.4-4.0); Lymphocytes % 5.4 % (21.2-54.2); Mean Corpuscular HGB Conc 31.9 GM/DL (32-36); Mean Corpuscular Volume 82.9 FL (87-102); Mean Platelet Volume 9.6 FL (9.6-12.0); Monocytes % 8.5 % (1.7-12.7); Neutrophils % 85.3 % (38.7-73.9); Platelet Count 274 T/CUMM (130-400); Red Blood Count 4.27 MC/CUMM (3.8-5.5); Red Cell Distribution Width 15.5 % (9.3-17.3)
[2020-06-24 05:15] LABS: Calcium 8.4 MG/DL (8.5-10.1)
[2020-06-24] MEDS ORDERED: PANTOPRAZOLE 40 MG VIAL IV ONE (06:58)
[2020-06-24] MEDS ORDERED: FUROSEMIDE 40 MG/4 ML VIAL IV ONE ×3 (07:16→16:17)
[2020-06-24 07:17] LABS: CKMB % 7.7 %
[2020-06-24 07:24] LABS: Troponin I 9.07 NG/ML (0.00-0.045)
[2020-06-24 09:10] LABS: CKMB % 9.3 %
[2020-06-24 09:16] LABS: Troponin I 8.77 NG/ML (0.00-0.045)
[2020-06-24] MEDS: TICAGRELOR 90 MG TABLET PO SCH ×2 (09:21→22:02)
[2020-06-24] MEDS: ATORVASTATIN 40 MG TABLET PO SCH (09:22)
[2020-06-24] MEDS: ASPIRIN EC 81 MG TABLET PO SCH (09:22)
[2020-06-24] MEDS: ISOSORBIDE MONONITRATE 20 MG TABLET PO SCH ×2 (09:22→22:02)
[2020-06-24] MEDS: cilostazoL 50 MG TABLET PO SCH ×2 (09:22→22:02)
[2020-06-24] MEDS: hydroCHLOROthiazide 12.5 MG CAPSULE PO SCH (09:23)
[2020-06-24] MEDS: METOPROLOL SUCCINATE XL 50 MG TABLET PO SCH (09:23)
[2020-06-24] MEDS: amLODIPine 10 MG TABLET PO SCH (09:23)
[2020-06-24] MEDS: OLMESARTAN 20 MG TABLET PO SCH (09:23)
[2020-06-24] MEDS: INSULIN REGULAR 100 UNIT/ML SUBCUT SCH ×3 (09:24→16:56)
[2020-06-24] MEDS: INSULIN LISPRO 100 UNIT/ML SUBCUT SCH ×3 (09:24→16:50)
[2020-06-24] MEDS: PANTOPRAZOLE 40 MG TABLET PO SCH (10:47)
[2020-06-24] MEDS: DAPAGLIFLOZIN 10 MG PO SCH (10:47)
[2020-06-24] MEDS: ONDANSETRON 4 MG/2 ML VIAL IV PRN (13:02)
[2020-06-24] MEDS ORDERED: ALBUTEROL/IPRATROPIUM 3 ML NEB RESP TX ONE (13:10)
[2020-06-24] MEDS ORDERED: methylPREDNISolone SOD SUC 40 MG/1 ML VIAL IV ONE ×2 (13:11→17:26)
[2020-06-24 14:52] LABS: CKMB % 8.3 %
[2020-06-24 14:57] LABS: Troponin I 11.5 NG/ML (0.00-0.045)
[2020-06-24] MEDS ORDERED: MORPHINE 4 MG/1 ML VIAL IV PRN (17:41)
[2020-06-24] MEDS ORDERED: MIDAZOLAM 10 MG/2 ML VIAL ONE (17:42)
[2020-06-24] MEDS ORDERED: SUCCINYLCHOLINE 200 MG/10 ML VIAL ONE (17:42)
[2020-06-24] MEDS ORDERED: INSULIN REGULAR 100 UNIT/ML SUBCUT SCH (18:00)
[2020-06-24] MEDS ORDERED: NOREPINEPHRINE 8 MG in SODIUM CHLORIDE 0.9% 242 ML IV PRN (18:07)
[2020-06-24] MEDS ORDERED: NOREPINEPHRINE 4 MG/4 ML VIAL IV ONE (18:09)
[2020-06-24] MEDS ORDERED: DOBUTamine 500 MG/250 ML PREMIX IV PRN (18:11)
[2020-06-24 18:15] LABS: Basophils % 0.1 % (0.0-0.8); Hematocrit 37.1 VOL% (42.0-52.0); Hemoglobin 11.3 GM/DL (14.0-18.0); Immature Granulocytes % 0.4 %; Immature Granulocytes Absolute 0.08 #; Lymphocytes # 1.2 10*3/uL (1.4-4.0); Lymphocytes % 5.5 % (21.2-54.2); Mean Corpuscular HGB Conc 30.5 GM/DL (32-36); Mean Corpuscular Volume 86.9 FL (87-102); Mean Platelet Volume 9.8 FL (9.6-12.0); Monocytes % 2.5 % (1.7-12.7); Neutrophils % 91.5 % (38.7-73.9); Platelet Count 295 T/CUMM (130-400); Red Blood Count 4.27 MC/CUMM (3.8-5.5); Red Cell Distribution Width 15.6 % (9.3-17.3); White Blood Count 21.2 T/CUMM (4-12)
[2020-06-24] MEDS ORDERED: HEPARIN DRIP 25,000 UNITS/500 ML PREMIX IV SCH (18:30)
[2020-06-24] MEDS ORDERED: HEPARIN/NACL 0.9% 2 UNITS/ML 500 ML IV ONE (18:30)
[2020-06-24 18:37] LABS: Calcium 8.1 MG/DL (8.5-10.1); Osmolality,Calculated 277.9 MOS/KG (273-304)
[2020-06-24] MEDS ORDERED: INSULIN GLARGINE 100 UNIT/ML SUBCUT SCH (18:44)
[2020-06-24 18:52] LABS: CKMB % 7.2 %
[2020-06-24 18:53] LABS: Troponin I 11.3 NG/ML (0.00-0.045)
[2020-06-24 19:00] LABS: ABG Base Excess -12.2 MMOL/L (-2.5-2.5); ABG HCO3 14.8 MMOL/L (20-26); ABG Oxygen Saturation 88.6 % (95-100); ABG PCO2 40.7 MM HG (35-48); ABG PO2 73.9 MM HG (80-95); ABG TCO2 14.5 MMOL/L (23-27)
[2020-06-24 19:01] LABS: ABG PH 7.193 (7.35-7.45)
[2020-06-24] MEDS ORDERED: MIDAZOLAM 2 MG/2 ML VIAL IV ONE (19:06)
[2020-06-24] MEDS ORDERED: SUCCINYLCHOLINE 200 MG/10 ML VIAL IV ONE (19:06)
[2020-06-24] MEDS ORDERED: PHENYLEPHRINE DRIP 40 MG/250 ML PREMIX IV PRN (19:14)
[2020-06-24] MEDS ORDERED: MIDAZOLAM 100 MG in SODIUM CHLORIDE 0.9% 80 ML IV PRN (19:16)
[2020-06-24] MEDS ORDERED: SODIUM BICARBONATE 50 MEQ/50 ML VIAL IV ONE ×4 (19:23→20:41)
[2020-06-24] MEDS ORDERED: CALCIUM CHLORIDE 1,000 MG/10 ML SYRINGE IV ONE ×2 (19:27→19:28)
[2020-06-24 19:48] LABS: ABG Base Excess -4.5 MMOL/L (-2.5-2.5); ABG HCO3 20.6 MMOL/L (20-26); ABG Oxygen Saturation 90.5 % (95-100); ABG PCO2 40.8 MM HG (35-48); ABG PH 7.324 (7.35-7.45); ABG PO2 69.6 MM HG (80-95); ABG TCO2 19.4 MMOL/L (23-27)
[2020-06-24] MEDS ORDERED: EPINEPHrine 1 MG/10 ML SYRINGE IV ONE ×2 (19:48→21:04)
[2020-06-24] MEDS ORDERED: MEROPENEM 500 MG in SODIUM CHLORIDE 0.9% 100 ML IV SCH (20:00)
[2020-06-24] MEDS ORDERED: DOPamine 800 MG/250 ML PREMIX IV PRN (20:08)
[2020-06-24] MEDS ORDERED: DOPamine 800 MG/250 ML PREMIX IV ONE (20:09)
[2020-06-24] MEDS ORDERED: EPINEPHrine 1 MG/ML VIAL ONE (20:26)
[2020-06-24 20:33] LABS: Lymphocytes 8 % (20-55); Segmented Neutrophils 91 % (50-85); Total Cells Counted 100
[2020-06-24 20:34] LABS: Anisocytosis 1+; Macrocytosis 1+; Platelet Estimate Normal
[2020-06-24 20:35] LABS: ABG HCO3 14.9 MMOL/L (20-26); ABG Oxygen Saturation 85.5 % (95-100); ABG PO2 69.2 MM HG (80-95)
[2020-06-24 20:38] LABS: ABG PH 7.182 (7.35-7.45)
[2020-06-24 20:39] VITALS: BP 60/34
[2020-06-24] MEDS ORDERED: SODIUM CHLORIDE 0.9% 500 ML IV ONE (20:47)
[2020-06-25] MEDS ORDERED: methylPREDNISolone SOD SUC 40 MG/1 ML VIAL IV SCH (02:00)
[2020-06-25] MEDS ORDERED: FUROSEMIDE 40 MG/4 ML VIAL IV SCH ×2 (08:00)
[2020-06-25] MEDS ORDERED: PANTOPRAZOLE 40 MG VIAL IV SCH (09:00)
== END 2020-06-24 21:21 | disposition expired | DRG 246 ==
LOC: N.ED 03:41 → N.ICU 04:20 → N.EDINP 04:56 → N.ICU 05:33
PROVIDERS: ADMIT Internal Medicine Cardiovascular Disease; ATTEND Internal Medicine Cardiovascular Disease